=== PATIENT | female | born 1935 | race Caucasian/White ===

== ENCOUNTER 2018-01-18 09:37 | Emergency (ER) | payer MEDICARE, OTHER, MEDICAID ==
[2018-01-18] MEDS: SOD CHLORIDE 0.9% 1,000 ML IV (10:38)
[2018-01-18 10:43] LABS: ADD MAN DIFF? NO
[2018-01-18 11:00] LABS: HEMATOCRIT 40.5 % (37.0-47.0); HEMOGLOBIN 13.5 g/dl (12.0-16.0); LYMPHOCYTES # 0.6 10^3/ul (0.8-2.9); LYMPHOCYTES % 12.3 % (15.0-51.0); MEAN CORPUSCULAR HEMOGLOBIN 31.5 pg (29.0-33.0); MEAN CORPUSCULAR HGB CONC 33.3 g/dl (32.0-37.0); MEAN CORPUSCULAR VOLUME 94.6 fl (82.0-101.0); MEAN PLATELET VOLUME 10.7 fl (7.4-10.4); MONOCYTE # 0.3 10^3/ul (0.3-0.9); MONOCYTES % 5.1 % (0.0-11.0); NEUTROPHIL # 4.2 10^3/ul (1.6-7.5); NEUTROPHILS % 82.2 % (39.0-77.0); PLATELET COUNT 165 10^3/UL (140-415); RED BLOOD COUNT 4.28 10^6/ul (4.20-5.40); RED CELL DISTRIBUTION WIDTH 11.9 % (11.5-14.5)
[2018-01-18 11:00] LABS: WHITE BLOOD COUNT 5.1 10^3/ul (4.8-10.8)
[2018-01-18 11:02] LABS: INR 0.89; PROTIME 12.1 Sec (11.9-14.9); PT RATIO 0.9
[2018-01-18 11:03] LABS: PARTIAL THROMBOPLASTIN TIME 30.9 Sec (25.0-35.0)
[2018-01-18 11:08] LABS: ALANINE AMINOTRANSFERASE 18 IU/L (13-69); ALBUMIN 4.1 g/dl (3.3-4.9); ALBUMIN/GLOBULIN RATIO 1.32; ALKALINE PHOSPHATASE 111 IU/L (42-121); AMYLASE 47 U/L (11-123); ANION GAP 16 (8-16); ASPARTATE AMINO TRANSFERASE 20 IU/L (15-46); BILIRUBIN,INDIRECT 0.3 mg/dl (0-1.1); BILIRUBIN,TOTAL 0.3 mg/dl (0.2-1.3); BLOOD UREA NITROGEN 19 mg/dl (7-20); CALCIUM 9.3 mg/dl (8.4-10.2); CARBON DIOXIDE 25 mmol/L (21-31); CHLORIDE 102 mmol/L (97-110); CREATININE 0.69 mg/dl (0.44-1.00); GLUCOSE 127 mg/dl (70-220); LIPASE 54 U/L (23-300); POTASSIUM 3.8 mmol/L (3.5-5.1); SODIUM 139 mmol/L (135-144); TOTAL PROTEIN 7.2 g/dl (6.1-8.1)
[2018-01-18 11:18] LABS: TROPONIN-I < 0.010 ng/ml (0.000-0.120)
[2018-01-18] MEDS: ONDANSETRON 4 MG INJ IV ×2 (12:19→13:37)
[2018-01-18] MEDS: FAMOTIDINE 20 MG INJ IV (12:19)
[2018-01-18 12:26] LABS: ADD UMIC NO; UR ASCORBIC ACID NEGATIVE (NEGATIVE); UR BILIRUBIN (Dip) NEGATIVE (NEGATIVE); UR BLOOD (Dip) NEGATIVE (NEGATIVE); UR CLARITY CLEAR (CLEAR); UR COLOR STRAW (YELLOW); UR GLUCOSE (Dip) NEGATIVE (NEGATIVE); UR KETONES (Dip) NEGATIVE (NEGATIVE); UR LEUKOCYTE ESTERASE (Dip) NEGATIVE Leu/ul (NEGATIVE); UR NITRITE (Dip) NEGATIVE (NEGATIVE); UR SPECIFIC GRAVITY (Dip) 1.005 (1.003-1.030); UR TOTAL PROTEIN (Dip) NEGATIVE (NEGATIVE); UR UROBILINOGEN (Dip) NEGATIVE (NEGATIVE)
[2018-01-18] MEDS: IOHEXOL 300MG/ML 150 ML BTL (12:30)
[2018-01-18] MEDS: SOD CHLORIDE 0.9% 100 ML (12:30)
[2018-01-18] MEDS: morphine 2 MG INJ IV (13:36)
[2018-01-18] MEDS: METOCLOPRAMIDE 10 MG INJ IV (13:37)
== END 2018-01-18 14:45 | disposition home or self-care (01) ==
LOC: E/R 09:37
DX: K57.30 Diverticulosis of large intestine without perforation or abscess without bleeding (principal); R40.2142 Coma scale, eyes open, spontaneous, at arrival to emergency department; R40.2252 Coma scale, best verbal response, oriented, at arrival to emergency department; R40.2362 Coma scale, best motor response, obeys commands, at arrival to emergency department; I10 Essential (primary) hypertension; R10.9 Unspecified abdominal pain; Z79.82 Long term (current) use of aspirin
CPT/HCPCS: 71045; 74177; 80053; 81003; 82150; 83690; 84484; 85025; 85610; 85730; 87086; 93005; 96361; 96374; 96375; 99285-25

== ENCOUNTER 2018-12-07 10:03 | Inpatient (IN) | payer MEDICARE, OTHER ==
[2018-12-07] MEDS: DILTIAZEM-D5W 125MG/125ML DRIP 125 ML IV (10:34)
[2018-12-07] MEDS: DILTIAZEM 25 MG INJ IV (10:34)
[2018-12-07 10:40] LABS: ADD MAN DIFF? NO
[2018-12-07 10:41] LABS: HEMOGLOBIN 13.2 g/dl (12.0-16.0); LYMPHOCYTES # 0.9 10^3/ul (0.8-2.9); LYMPHOCYTES % 23.4 % (15.0-51.0); MEAN CORPUSCULAR HEMOGLOBIN 29.9 pg (29.0-33.0); MEAN CORPUSCULAR HGB CONC 33.8 g/dl (32.0-37.0); MEAN CORPUSCULAR VOLUME 88.4 fl (82.0-101.0); MEAN PLATELET VOLUME 10.1 fl (7.4-10.4); MONOCYTE # 0.3 10^3/ul (0.3-0.9); MONOCYTES % 6.5 % (0.0-11.0); NEUTROPHIL # 2.7 10^3/ul (1.6-7.5); NEUTROPHILS % 69.8 % (39.0-77.0); PLATELET COUNT 185 10^3/UL (140-415); RED BLOOD COUNT 4.41 10^6/ul (4.20-5.40); RED CELL DISTRIBUTION WIDTH 12.4 % (11.5-14.5)
[2018-12-07 10:41] LABS: WHITE BLOOD COUNT 3.8 10^3/ul (4.8-10.8)
[2018-12-07 10:56] LABS: ALANINE AMINOTRANSFERASE 22 IU/L (13-69); ALBUMIN 4.1 g/dl (3.3-4.9); ALBUMIN/GLOBULIN RATIO 1.13; ALKALINE PHOSPHATASE 84 IU/L (42-121); ANION GAP 11 (5-13); ASPARTATE AMINO TRANSFERASE 21 IU/L (15-46); BILIRUBIN,INDIRECT 0.5 mg/dl (0-1.1); BILIRUBIN,TOTAL 0.5 mg/dl (0.2-1.3); BLOOD UREA NITROGEN 13 mg/dl (7-20); CALCIUM 9.6 mg/dl (8.4-10.2); CARBON DIOXIDE 26 mmol/L (21-31); CHLORIDE 102 mmol/L (97-110); CREATINE KINASE 48 IU/L (23-200); CREATININE 0.78 mg/dl (0.44-1.00); GLUCOSE 119 mg/dl (70-220); POTASSIUM 4.2 mmol/L (3.5-5.1); SODIUM 139 mmol/L (135-144); TOTAL PROTEIN 7.7 g/dl (6.1-8.1)
[2018-12-07 11:04] LABS: PROTIME 12.3 Sec (11.9-14.9)
[2018-12-07 11:05] LABS: PARTIAL THROMBOPLASTIN TIME 34.1 Sec (23.0-35.0)
[2018-12-07 11:08] LABS: B-TYPE NATRIURETIC PEPTIDE 213 PG/ML (0-450); CK INDEX 4.2; TROPONIN-I < 0.012 ng/ml (0.000-0.120)
[2018-12-07] MEDS: SOD CHLORIDE 0.9% 500 ML IV (11:12)
[2018-12-07 12:05] LABS: ADD UMIC NO; UR ASCORBIC ACID NEGATIVE (NEGATIVE); UR BILIRUBIN (Dip) NEGATIVE (NEGATIVE); UR BLOOD (Dip) NEGATIVE (NEGATIVE); UR CLARITY CLEAR (CLEAR); UR COLOR COLORLESS (YELLOW); UR GLUCOSE (Dip) NEGATIVE (NEGATIVE); UR KETONES (Dip) TRACE mg/dL (NEGATIVE); UR LEUKOCYTE ESTERASE (Dip) NEGATIVE Leu/ul (NEGATIVE); UR NITRITE (Dip) NEGATIVE (NEGATIVE); UR SPECIFIC GRAVITY (Dip) 1.003 (1.003-1.030); UR TOTAL PROTEIN (Dip) NEGATIVE (NEGATIVE); UR UROBILINOGEN (Dip) NEGATIVE (NEGATIVE)
[2018-12-07] MEDS: ASPIRIN (EC) 325 MG TAB PO (13:00)
[2018-12-07] MEDS ORDERED: ACETAMINOPHEN 325 MG TAB PO ×2 (14:00→15:00)
[2018-12-07] MEDS ORDERED: ONDANSETRON 4 MG INJ IV ×2 (14:00→15:00)
[2018-12-07] MEDS ORDERED: NACL 0.9% 3 ML SYG IV (15:00)
[2018-12-07] MEDS ORDERED: traMADol 50 MG TAB PO (15:00)
[2018-12-07] MEDS ORDERED: clonAZEPAM 0.5 MG TAB PO (15:00)
[2018-12-07] MEDS ORDERED: LEVALBUTEROL (HFA) 15 GM INHALER INH (15:00)
[2018-12-07] MEDS ORDERED: NITROGLYCERIN (SL) 0.4 MG TAB SL (15:00)
[2018-12-07] MEDS ORDERED: MAGNESIUM HYDROXIDE 30ML CUP PO (15:00)
[2018-12-07] MEDS: SOD CHLORIDE 0.9% 100 ML (15:28)
[2018-12-07] MEDS: IOHEXOL 300MG/ML 150 ML BTL (15:28)
[2018-12-07] MEDS: APIXABAN 5 MG TABLET PO (17:15)
[2018-12-07] MEDS: METOPROLOL 50 MG TAB PO ×2 (17:16→21:24)
[2018-12-07] MEDS: DICLOFENAC SODIUM 1% GEL 100 GM TUBE TP ×3 (17:16→21:25)
[2018-12-07 21:00] LABS: CK INDEX 4.7; CK-MB 2.17 ng/ml (0.0-2.4); CREATINE KINASE 46 IU/L (23-200); TROPONIN-I 0.017 ng/ml (0.000-0.120)
[2018-12-07] MEDS: LUBIPROSTONE 8 MCG CAPSULE PO (21:00)
[2018-12-07] MEDS: CYCLOSPORINE 0.05% OPH DROPERETTE BOTH EYES (21:00)
[2018-12-07] MEDS: AMLODIPINE 5 MG TAB PO (21:24)
[2018-12-07] MEDS: RANITIDINE 150 MG TAB PO (21:25)
[2018-12-07 22:57] LABS: CREATINE KINASE 43 IU/L (23-200)
[2018-12-07 23:09] LABS: CK INDEX 4.7; TROPONIN-I < 0.012 ng/ml (0.000-0.120)
[2018-12-08] MEDS: APIXABAN 5 MG TABLET PO ×2 (00:58→10:10)
[2018-12-08 06:07] LABS: ADD MAN DIFF? NO
[2018-12-08 06:08] LABS: HEMATOCRIT 36.5 % (37.0-47.0); HEMOGLOBIN 12.3 g/dl (12.0-16.0); LYMPHOCYTES # 1.1 10^3/ul (0.8-2.9); LYMPHOCYTES % 39.6 % (15.0-51.0); MEAN CORPUSCULAR HEMOGLOBIN 29.9 pg (29.0-33.0); MEAN CORPUSCULAR HGB CONC 33.7 g/dl (32.0-37.0); MEAN CORPUSCULAR VOLUME 88.6 fl (82.0-101.0); MEAN PLATELET VOLUME 10.1 fl (7.4-10.4); MONOCYTE # 0.3 10^3/ul (0.3-0.9); MONOCYTES % 10.6 % (0.0-11.0); NEUTROPHIL # 1.4 10^3/ul (1.6-7.5); NEUTROPHILS % 49.4 % (39.0-77.0); PLATELET COUNT 187 10^3/UL (140-415); RED BLOOD COUNT 4.12 10^6/ul (4.20-5.40); RED CELL DISTRIBUTION WIDTH 12.6 % (11.5-14.5)
[2018-12-08 06:08] LABS: WHITE BLOOD COUNT 2.8 10^3/ul (4.8-10.8)
[2018-12-08] MEDS: LEVOTHYROXINE 50 MCG TAB PO (06:08)
[2018-12-08] MEDS: DOCUSATE SODIUM 100 MG CAP PO (06:08)
[2018-12-08 06:31] LABS: ANION GAP 7 (5-13); BLOOD UREA NITROGEN 14 mg/dl (7-20); CALCIUM 9.6 mg/dl (8.4-10.2); CARBON DIOXIDE 28 mmol/L (21-31); CHLORIDE 106 mmol/L (97-110); CHOL/HDL RATIO 4.8 RATIO; CHOLESTEROL 194 mg/dl (100-200); CREATININE 0.73 mg/dl (0.44-1.00); GLUCOSE 87 mg/dl (70-220); HDL CHOLESTEROL 40 mg/dl (33-92); LDL CHOLESTEROL,CALCULATED 130 mg/dl; POTASSIUM 4.1 mmol/L (3.5-5.1); SODIUM 141 mmol/L (135-144); TRIGLYCERIDES 119 mg/dl (0-149)
[2018-12-08] MEDS: CELECOXIB 200 MG CAP PO (10:10)
[2018-12-08] MEDS: LORATADINE 10 MG TAB PO (10:10)
[2018-12-08] MEDS: CYCLOSPORINE 0.05% OPH DROPERETTE BOTH EYES (10:10)
[2018-12-08] MEDS: LUBIPROSTONE 8 MCG CAPSULE PO (10:11)
[2018-12-08] MEDS: FUROSEMIDE 40 MG TAB PO (10:11)
[2018-12-08] MEDS: AMLODIPINE 5 MG TAB PO (10:11)
[2018-12-08] MEDS: METOPROLOL 50 MG TAB PO (10:12)
[2018-12-08] MEDS: DICLOFENAC SODIUM 1% GEL 100 GM TUBE TP ×3 (10:13→17:23)
[2018-12-08] MEDS: CHOLECALCIFEROL 1,000 UNIT TAB PO (10:13)
[2018-12-08] MEDS: PAROXETINE 10 MG TAB PO (10:13)
== END 2018-12-08 18:00 | disposition home or self-care (01) | DRG 310 ==
LOC: E/R 10:03 → 6WM 13:49
DX: I48.91 Unspecified atrial fibrillation (principal); I10 Essential (primary) hypertension; E03.9 Hypothyroidism, unspecified; M19.90 Unspecified osteoarthritis, unspecified site; K59.00 Constipation, unspecified
CPT/HCPCS: 36415; 71045; 71260; 80048; 80053; 80061; 81003; 82550; 82553; 83036; 83735; 83880; 84443; 84484; 85025; 85610; 85730; 87086; 93005; 93306; 99285-25